=== PATIENT | female | born 1980 | race Caucasian/White ===

== ENCOUNTER 2017-10-28 05:59 | Day surgery (SDC) | payer OTHER ==
[~2017-10-28] VITALS: Ht 147.3 cm; Wt 44.4 kg
[~2017-10-28 05:59] MED LIST: ASPIRIN81 MG PO; CITRUCEL POWDE454 GM PO; CRANBERRY500 MG PO; IBUPROFEN200 M1 PO; METHYLPHENIDATE36 MG PO; MIRALAX119 GM PO; ROBINUL1 MG PO; TRAZODONE HCL150 MG PO; TYLENOL EXTRA500 MG PO
--- NOTE | 2017-10-28 08:19 | NUR ---
LE 0600: PT ARRIVES TO DS RM 1 WITH CAREGIVER AMBULATORY. PT PROVIDED WARM BLANKET. UNABLE TO OBTAIN BP ON PT DUE TO MOVEMENT.
--- NOTE | 2017-10-28 09:11 | NUR ---
PT RESTING PEACEFULLY WITH EYES CLOSED, BEDRAILS UP, FOSTER CAREGIVER PRESENT IN ROOM. ORAL VERSED EFFECTIVE. OXIMETER IN PLACE WITH SATS 96. IV PLACED IN RIGHT WRIST AND WRAPPED WITH GAUZE.
--- NOTE | 2017-10-28 10:41 | NUR ---
PT RESTING QUIETLY WITH EYES CLOSED, O2 SAT 96 PERCENT, RESPIRATIONS 16. FOSTER CAREGIVER PRESENT IN ROOM. CALL LIGHT WITHIN REACH, NO FURTHER REQUESTS AT THIS TIME.
--- NOTE | 2017-10-28 14:19 | NUR ---
10/28/17 1419 Jolene Caputo 1408 PATIENT ARRIVES TO PACU WITH ORAL AIRWAY IN PLACE, UNRESPONSIVE TO PAIN OR VERBAL STIMULI. RESP EVEN AND UNLABORED, MASK AT 6 LITERS. 1415 PATIENT GAGGING, ORAL AIRWAY REMOVED. MASK REMOVED. PATIENT SLEEPING. ROOM AIR AT 99%.
--- NOTE | 2017-10-28 15:07 | NUR ---
1455: PT ARRIVES TO DS UNIT RM 1 AWAKE, BUT DROWSY. FOSTER CAREGIVER IN ROOM ON ARRIVAL. PT RECEIVED WATER, JELLO AND YOGURT WAS ORDERED FROM KITCHEN. PT SITTING UPRIGHT IN BED, EATING JELLO. SCD'S REMOVED BY CAREGIVER AT PT'S REQUEST. NO FURTHER REQUESTS AT THIS TIME. CALL LIGHT WITHIN REACH.
[2017-10-28] MEDS ORDERED: ACETAMINOP-CODEI5 ML PO (15:32)
--- NOTE | 2017-10-28 16:08 | NUR ---
PT UP TO BR WITH ASSIST, AMBULATES WELL. PT LIVES OVER AN HOUR AWAY, SO TYLENOL 3 ELIXIR SCRIPT FAXED TO [facility] IN [place], SO CAREGIVER CAN USE DRIVE THROUGH WINDOW. DC INSTRUCTIONS GIVEN IN THE PRESENCE OF PT AND CAREGIVER, CAREGIVER VERBALIZES UNDERSTANDING. ALL QUESTIONS ANSWERED. PT DC'S DS RM 1 VIA WHEELCHAIR WITH RN AND CAREGIVER.
== END 2017-10-28 16:10 | disposition home or self-care (01) ==
LOC: DS 05:59
PROVIDERS: Dentist General Practice
PROC: 0CDXXZ1 Extraction of Lower Tooth, Multiple, External Approach (ICD-10-PCS; 2017-10-28)
PROC: 0CDWXZ0 Extraction of Upper Tooth, Single, External Approach (ICD-10-PCS; 2017-10-28)
PROC: 0CRXXJ0 Replacement of Lower Tooth, Single, with Synthetic Substitute, External Approach (ICD-10-PCS; principal; 2017-10-28 09:45)
DX: K02.9 Dental caries, unspecified (principal); K04.7 Periapical abscess without sinus; M41.9 Scoliosis, unspecified; Z88.8 Allergy status to other drugs, medicaments and biological substances; Z79.899 Other long term (current) drug therapy
CPT/HCPCS: 00170; 70320; 84703; J0330; J2250; J2704; J7120